=== PATIENT | male | born 1990 | race Caucasian/White ===

== ENCOUNTER 2019-03-28 11:26 | Inpatient (IN) | payer BC ==
[2019-03-28] MEDS ORDERED: NORMAL SALINE 1000 ML 1,000 ML IV ONE ×2 (11:35→12:42)
--- NOTE | 2019-03-28 11:39 | ER Document Report ---
ED Medical Screen (RME) - General Chief Complaint: Medication Refill Stated Complaint: MEDICATION REFILL Time Seen by Provider: 03/28/19 11:30 Mode of Arrival: Ambulatory Information source: Patient Notes: Patient is a 28-year-old type I diabetic presenting to the emergency department with request for medication refill. Patient reports he has not had his insulin for approximately 1 week. Patient is tachycardic at time of arrival, patient does not appear to feel well. When questioned patient states that yesterday he felt like he may be going into DKA has not felt well and has had increased thirst. Patient will be worked up for DKA at this time. Exam: Tachycardia noted on auscultation. Skin pale. I have greeted and performed a rapid initial assessment of this patient. A comprehensive ED assessment and evaluation of the patient, analysis of test results and completion of the medical decision making process will be conducted by additional ED providers. I have specifically instructed the patient or family members with the patient to immediately return to any nursing staff should anything change in the patient's condition or with their chief complaint. This medical record was dictated with voice recognizing software. There may be grammatical, syntax errors that are unintended. Past Medical History - Social History Frequency of alcohol use: Social Drug Abuse: None Physical Exam - Vital signs Vitals: Temp Pulse Resp BP Pulse Ox 97.9 F 123 H 16 137/85 H 99 03/28/19 11:30 03/28/19 11:30 03/28/19 11:30 03/28/19 11:30 03/28/19 11:30 Course - Vital Signs Vital signs: Temp Pulse Resp BP Pulse Ox 97.9 F 123 H 16 137/85 H 99 03/28/19 11:30 03/28/19 11:30 03/28/19 11:30 03/28/19 11:30 03/28/19 11:30
[2019-03-28 11:58] LABS: ABSOLUTE EOSINOPHILS # (AUTO) 0.1 10^3/uL (0.0-0.6); ABSOLUTE LYMPHOCYTES (AUTO) 1.6 10^3/uL (0.5-4.7); ABSOLUTE MONOCYTES (AUTO) 0.3 10^3/uL (0.1-1.4); ABSOLUTE NEUT (AUTO) 3.2 10^3/uL (1.7-8.2); BASOPHILS % (AUTO) 0.5 % (0-2); EOSINOPHILS % (AUTO) 1.1 % (0-6); HEMATOCRIT 43.8 % (37.9-51.0); LYMPHOCYTES % (AUTO) 30.5 % (13-45); MEAN CORPUSCULAR HEMOGLOBIN 30.8 pg (27.0-33.4); MEAN CORPUSCULAR HGB CONC 34.3 g/dL (32.0-36.0); MEAN CORPUSCULAR VOLUME 90 fl (80-97); MONOCYTES % (AUTO) 6.4 % (3-13); PLATELET COUNT 327 10^3/uL (150-450); RED BLOOD COUNT 4.88 10^6/uL (4.35-5.55); RED CELL DISTRIBUTION WIDTH 13.7 % (11.5-14.0); SEGMENTED NEUTROPHILS % (AUTO) 61.5 % (42-78); TOTAL CELLS COUNTED % (AUTO) 100 %; WHITE BLOOD COUNT 5.1 10^3/uL (4.0-10.5)
[2019-03-28 12:12] LABS: VENOUS BLOOD BASE EXCESS -12.9 mmol/L; VENOUS BLOOD HCO3 13.6 mmol/L (20-32); VENOUS BLOOD PCO2 33.6 mmHg (35-63); VENOUS BLOOD PH 7.23 (7.30-7.42)
[2019-03-28 12:19] LABS: ALBUMIN 4.9 g/dL (3.5-5.0); ALKALINE PHOSPHATASE 110 U/L (38-126); ASPARTATE AMINO TRANSFERASE 18 U/L (17-59); BILIRUBIN,DIRECT 0.3 mg/dL (0.0-0.4); BILIRUBIN,TOTAL 0.9 mg/dL (0.2-1.3); BLOOD UREA NITROGEN 14 mg/dL (7-20); CALCIUM 9.5 mg/dL (8.4-10.2); CARBON DIOXIDE 12 mmol/L (22-30); CHLORIDE 97 mmol/L (98-107); POTASSIUM 4.8 mmol/L (3.6-5.0); TOTAL PROTEIN 7.7 g/dL (6.3-8.2)
[2019-03-28 12:27] LABS: ANION GAP 27 (5-19)
[2019-03-28 12:28] LABS: GLUCOSE 461 mg/dL (75-110)
--- NOTE | 2019-03-28 12:50 | ER Document Report ---
ED Blood Sugar Problem - General Chief Complaint: High Blood Sugar Stated Complaint: MEDICATION REFILL Time Seen by Provider: 03/28/19 11:30 Mode of Arrival: Ambulatory Information source: Patient Notes: This 28-year-old male patient comes emergency room complaining of feeling bad for 1 week, nausea since yesterday. His blood sugars been running high. He ran out of his Tresiba about 1 week ago. He has been trying his regular insulin but unable to control his sugars. Patient reports he moved here in December of this year, has been getting refills on his medication from his doctor in [place] who stopped refilling the medication wanting him to get a local primary care provider. He has not done that yet. He has been hospitalized for DKA in the past. 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 Review of Systems - Review of Systems Constitutional: Weakness EENT: No symptoms reported Cardiovascular: No symptoms reported Respiratory: No symptoms reported Gastrointestinal: Nausea, Other - Increased thirst Genitourinary: Other - Increased urination Musculoskeletal: No symptoms reported Skin: No symptoms reported Hematologic/Lymphatic: No symptoms reported Neurological/Psychological: No symptoms reported Physical Exam - Vital signs Vitals: Temp Pulse Resp BP Pulse Ox 97.9 F 123 H 16 137/85 H 99 03/28/19 11:30 03/28/19 11:30 03/28/19 11:30 03/28/19 11:30 03/28/19 11:30 Interpretation: Tachycardic, Tachypneic - General General appearance: Alert In distress: None Notes: Patient has strong ketone odor to his breath. - HEENT Head: Normocephalic, Atraumatic Eyes: Normal Pupils: PERRL Mucous membranes: Dry Neck: Normal - Respiratory Respiratory status: Tachypnea Breath sounds: Normal - Cardiovascular Rhythm: Regular, Tachycardia Heart sounds: Normal auscultation Murmur: No - Abdominal Inspection: Normal Bowel sounds: Normal Tenderness: Nontender - Back Back: Normal - Extremities General upper extremity: Normal inspection General lower extremity: Normal inspection - Neurological Neuro grossly intact: Yes - Psychological Associated symptoms: Normal affect, Normal mood - Skin Skin Temperature: Warm Skin Moisture: Dry Skin Color: Normal Course - Vital Signs Vital signs: Temp Pulse Resp BP Pulse Ox 97.9 F 123 H 20 124/85 100 03/28/19 11:30 03/28/19 11:30 03/28/19 14:01 03/28/19 14:01 03/28/19 14:01 - Laboratory Result Diagrams: 03/28/19 11:43 03/28/19 11:43 Laboratory results interpreted by me: 03/28/19 03/28/19 03/28/19 11:43 11:43 13:21 VBG pH 7.23 L VBG pCO2 33.6 L VBG HCO3 13.6 L Sodium 136.2 L Chloride 97 L Carbon Dioxide 12 L Anion Gap 27 H Glucose 461 H* POC Glucose 402 H* Urine Glucose (UA) Urine Ketones 03/28/19 13:30 VBG pH VBG pCO2 VBG HCO3 Sodium Chloride Carbon Dioxide Anion Gap Glucose POC Glucose Urine Glucose (UA) >=500 H Urine Ketones 80 H - EKG Interpretation by Me EKG shows normal: Sinus rhythm, [place], Intervals, QRS Complexes, ST-T Waves Rate: Tachycardia - 103 - Consults Corina Castillo NP Time consulted: 14:20 Consulted provider: will come to ER Critical Care Note - Critical Care Note Total time excluding time spent on procedures (mins): 35 Discharge - Discharge Clinical Impression: Hyperglycemia due to type 1 diabetes mellitus, Has run out of medications Diabetic ketoacidosis Qualifiers: Diabetes mellitus type: type 1 Diabetes mellitus complication detail: without coma Qualified Code(s): E10.10 - Type 1 diabetes mellitus with ketoacidosis without coma Condition: Stable Disposition: ADMITTED INPATIENT Admitting Provider: Neli (Hospitalist) Unit Admitted: Telemetry
[2019-03-28] MEDS ORDERED: INSULIN REG, HUMAN 100 UNIT/ML 3 ML VIAL (PYX) IV ONE ×2 (13:02→14:59)
[2019-03-28 13:43] LABS: APPEARANCE,URINE CLEAR; BILIRUBIN,URINE NEGATIVE (NEGATIVE); COLOR,URINE STRAW; GLUCOSE, URINE >=500 mg/dL (NEGATIVE); KETONES,URINE 80 mg/dL (NEGATIVE); LEUKOCYTE ESTERASE,URINE NEGATIVE (NEGATIVE); NITRITE,URINE NEGATIVE (NEGATIVE); PROTEIN,URINE NEGATIVE (NEGATIVE); URINE SPECIFIC GRAVITY 1.017; UROBILINOGEN,URINE NEGATIVE mg/dL (<2.0)
[2019-03-28] MEDS ORDERED: ONDANSETRON HCL INJ/PF 4 MG/2 ML SDV IV PRN (15:00)
[2019-03-28] MEDS ORDERED: MAG HYDROX/AL HYDROX/SIMETH SUSP 30 ML UDCUP PO PRN (15:00)
[2019-03-28] MEDS ORDERED: PROMETHAZINE HCL INJ 25 MG/1 ML VIAL IV PRN (15:00)
[2019-03-28] MEDS ORDERED: NORMAL SALINE 1000 ML 1,000 ML IV PRN (15:00)
[2019-03-28] MEDS ORDERED: ACETAMINOPHEN 325 MG TABLET PO PRN (15:00)
[2019-03-28] MEDS ORDERED: DEXTROSE 50%-WATER 25 GM/50 ML DISP.SYRIN IV PRN ×2 (15:04)
[2019-03-28] MEDS ORDERED: GLUCAGON,HUMAN RECOMB 1 MG INJ IM PRN (15:04)
[2019-03-28] MEDS ORDERED: DEXTROSE 40% GEL 15 GM TUBE PO PRN ×2 (15:04)
--- NOTE | 2019-03-28 15:21 | PDOC H&P ---
History of Present Illness Patient complains of: Uncontrolled blood sugars History of Present Illness: BRADY SIMMONS is a 28 year old male with a past medical history significant for insulin-dependent diabetes mellitus only. Patient reports that he moved to the area a few months ago and ran out of his Tresiba last week. He has been utilizing NovoLog and attempt to manage his blood sugars. He reports he began having generalized malaise, polydipsia, polyuria, and nausea approximately 2 days ago. Reports one episode of emesis yesterday but none today. He denies any precipitating illnesses; no fever chills, upper respiratory symptoms, chest pain, diarrhea, or UTI symptoms. Evaluation in the emergency department revealed mild tachycardia with a heart rate of 100 -110, normal CBC, and chemistry demonstrating DKA with sodium of 136.2, potassium 4.8, bicarb 12, anion gap 27, and blood glucose 461. Urinalysis positive for glucose and ketones. EKG demonstrates sinus tachycardia. Patient was previously 2 L normal saline bolus and started on insulin drip at 1 unit/h. He was then referred to the hospitalist service for admission and management of the above-stated complaints of findings. Past Medical History Cardiac Medical History: Reports: None Pulmonary Medical History: Reports: Asthma - Childhood EENT Medical History: Reports: None Neurological Medical History: Reports: None Endocrine Medical History: Reports: Diabetes Mellitus Type 1 Renal/ Medical History: Reports: None Malignancy Medical History: Reports: None GI Medical History: Reports: None Musculoskeltal Medical History: Reports: None Skin Medical History: Reports: None Psychiatric Medical History: Reports: None Traumatic Medical History: Reports: None Hematology: Reports: None Infectious Medical History: Reports: None Past Surgical History Past Surgical History: Reports: Other - 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 Social History Information Source: Patient Lives with: Alone Smoking Status: Never Smoker Electronic Cigarette use?: No Frequency of Alcohol Use: Social Hx Recreational Drug Use: No Drugs: None Hx Prescription Drug Abuse: No - Advance Directive Resuscitation Status: Full Code Family History Family History: Reviewed & Not Pertinent Parental Family History Reviewed: Yes Children Family History Reviewed: Yes Sibling(s) Family History Reviewed.: Yes Medication/Allergy Allergies/Adverse Reactions: Penicillins Allergy (Verified 03/28/19 11:38) Review of Systems Constitutional: PRESENT: anorexia, fatigue. ABSENT: chills, fever(s), h eadache(s), weight gain, weight loss Eyes: ABSENT: visual disturbances Ears: ABSENT: hearing changes Cardiovascular: ABSENT: chest pain, dyspnea on exertion, edema, orthropnea, palpitations Respiratory: ABSENT: cough, hemoptysis Gastrointestinal: PRESENT: nausea. ABSENT: abdominal pain, constipation, diarrhea, hematemesis, hematochezia, vomiting Genitourinary: ABSENT: dysuria, hematuria Musculoskeletal: ABSENT: joint swelling Integumentary: ABSENT: rash, wounds Neurological: ABSENT: abnormal gait, abnormal speech, confusion, dizziness, focal weakness, syncope Psychiatric: ABSENT: anxiety, depression, homidical ideation, suicidal ideation Endocrine: PRESENT: polydipsia, polyuria. ABSENT: cold intolerance, heat into lerance Hematologic/Lymphatic: ABSENT: easy bleeding, easy bruising Physical Exam Vital Signs: Temp Pulse Resp BP Pulse Ox 97.9 F 123 H 20 124/85 100 03/28/19 11:30 03/28/19 11:30 03/28/19 14:01 03/28/19 14:01 03/28/19 14:01 Intake & Output 03/27/19 03/28/19 03/29/19 06:59 06:59 06:59 Intake Total 1999 Balance 1999 Weight 61.5 kg General appearance: PRESENT: no acute distress, thin, well-developed, well- nourished Head exam: PRESENT: atraumatic, normocephalic Eye exam: PRESENT: conjunctiva pink, EOMI, PERRLA. ABSENT: scleral icterus Ear exam: PRESENT: normal external ear exam Mouth exam: PRESENT: dry mucosa, tongue midline Respiratory exam: PRESENT: clear to auscultation [place], symmetrical, unlabored. ABSENT: rales, rhonchi, wheezes Cardiovascular exam: PRESENT: RRR, +S1, +S2. ABSENT: diastolic murmur, rubs, systolic murmur Vascular exam: PRESENT: normal capillary refill GI/Abdominal exam: PRESENT: normal bowel sounds, soft. ABSENT: distended, guarding, mass, organolmegaly, rebound, tenderness Rectal exam: PRESENT: deferred Extremities exam: PRESENT: full ROM. ABSENT: calf tenderness, clubbing, pedal edema Neurological exam: PRESENT: alert, awake, oriented to person, oriented to place, oriented to time, oriented to situation, CN II-XII grossly intact. ABSENT: motor sensory deficit Psychiatric exam: PRESENT: appropriate affect, normal mood. ABSENT: homicidal ideation, suicidal ideation Skin exam: PRESENT: dry, intact, warm. ABSENT: cyanosis, rash Results Laboratory Results: 03/28/19 11:43 03/28/19 11:43 03/28/19 03/28/19 03/28/19 11:43 11:43 11:43 WBC 5.1 RBC 4.88 Hgb 15.0 Hct 43.8 MCV 90 MCH 30.8 MCHC 34.3 RDW 13.7 Plt Count 327 Seg Neutrophils % 61.5 VBG pH 7.23 L VBG pCO2 33.6 L VBG HCO3 13.6 L VBG Base Excess -12.9 Sodium 136.2 L Potassium 4.8 Chloride 97 L Carbon Dioxide 12 L Anion Gap 27 H BUN 14 Creatinine 0.71 Est GFR ( Amer) > 60 Glucose 461 H* Calcium 9.5 Magnesium 2.0 Total Bilirubin 0.9 AST 18 Alkaline Phosphatase 110 Total Protein 7.7 Albumin 4.9 Urine Color Urine Appearance Urine pH Ur Specific [employer] Urine Protein Urine Glucose (UA) Urine Ketones Urine Blood Urine Nitrite Ur Leukocyte Esterase Urine WBC (Auto) Urine RBC (Auto) 03/28/19 13:30 WBC RBC Hgb Hct MCV MCH MCHC RDW Plt Count Seg Neutrophils % VBG pH VBG pCO2 VBG HCO3 VBG Base Excess Sodium Potassium Chloride Carbon Dioxide Anion Gap BUN Creatinine Est GFR ( Amer) Glucose Calcium Magnesium Total Bilirubin AST Alkaline Phosphatase Total Protein Albumin Urine Color STRAW Urine Appearance CLEAR Urine pH 5.0 Ur Specific [employer] 1.017 Urine Protein NEGATIVE Urine Glucose (UA) >=500 H Urine Ketones 80 H Urine Blood NEGATIVE Urine Nitrite NEGATIVE Ur Leukocyte Esterase NEGATIVE Urine WBC (Auto) 0 Urine RBC (Auto) 0 Assessment and Plan - Diagnosis (1) Diabetic ketoacidosis Qualifiers: Diabetes mellitus type: type 1 Diabetes mellitus complication detail: without coma Qualified Code(s): E10.10 - Type 1 diabetes mellitus with ketoacidosis without coma Is this a current diagnosis for this admission?: Yes Plan: The patient was admitted to the medical floor on continuous cardiac telemetry. We will provide aggressive IV fluid resuscitation. 10 units regular insulin IV now. Continue on insulin drip with hourly Accu-Cheks Nursing to notify provider when glucose drops before 250; anticipate patient will require D5NS shortly. N.p.o. with the exception of ice chips Serial chemistries group director experience, patient educator, and marine air ground task force planners are consulted. (2) Hyponatremia Is this a current diagnosis for this admission?: Yes Plan: Secondary to IV fluids. Aggressive IV fluid rehydration. Follow-up chemistry. (3) Tachycardia Is this a current diagnosis for this admission?: Yes Plan: Secondary to #1. Management as above. Monitor on continuous cardiac telemetry. (4) Nausea Is this a current diagnosis for this admission?: Yes Plan: Secondary #1. Management as above. Antiemetics as needed. (5) Diabetes mellitus type 1 Qualifiers: Diabetes mellitus complication status: with hyperglycemia Qualified Code(s): E10.65 - Type 1 diabetes mellitus with hyperglycemia Is this a current diagnosis for this admission?: Yes Plan: Management of DKA as above. Will check A1c with AM lab work. - Time Time Spent with patient: 35 or more minutes Medications reviewed and adjusted accordingly: Yes Anticipated discharge: Home Within: within 48 hours
[2019-03-28] MEDS: NORMAL SALINE 100 ML with INSULIN REGULAR, HUMAN 100 UNIT IV PRN ×6 (15:30→18:30)
[2019-03-28] MEDS ORDERED: DEXTROSE 5%-NORMAL SALINE 1,000 ML IV PRN (16:56)
--- NOTE | 2019-03-28 17:13 | EKG REPORT ---
SEVERITY:- OTHERWISE NORMAL ECG - SINUS TACHYCARDIA : Confirmed by: Wilfredo Tyler MD 28-Mar-2019 17:12:50
[2019-03-28 18:34] LABS: ANION GAP 18 (5-19); BLOOD UREA NITROGEN 13 mg/dL (7-20); CALCIUM 8.4 mg/dL (8.4-10.2); CARBON DIOXIDE 13 mmol/L (22-30); CHLORIDE 107 mmol/L (98-107); GLUCOSE 218 mg/dL (75-110)
[2019-03-28 18:43] LABS: POTASSIUM 3.8 mmol/L (3.6-5.0)
[2019-03-28] MEDS ORDERED: POTASSI CL 20 MEQ/D5NS 1L 20 MEQ/1,000 ML RTUINJ IV PRN (19:17)
[2019-03-28] MEDS ORDERED: POTASSIUM CHLORIDE 10 MEQ CAPSULE.ER PO ONE (20:00)
[2019-03-28] MEDS: POTASSI CL 20 MEQ/D5-1/2NS 1L 1,000 ML IV PRN (20:42)
[2019-03-28] MEDS: HEPARIN SOD (PORCINE) 5,000 UNIT/ML 1 ML VIAL SUBCUT SCH (21:27)
[2019-03-28] MEDS: FAMOTIDINE INJ/PF 20 MG/2 ML SDV IV SCH (21:36)
--- NOTE | 2019-03-28 23:10 | EKG REPORT ---
SEVERITY:- OTHERWISE NORMAL ECG - SINUS RHYTHM LEFT AXIS DEVIATION LVH : Confirmed by: Wilfredo Tyler MD 28-Mar-2019 23:09:17
[2019-03-29 01:04] LABS: ANION GAP 10 (5-19); BLOOD UREA NITROGEN 9 mg/dL (7-20); CALCIUM 8.3 mg/dL (8.4-10.2); CARBON DIOXIDE 21 mmol/L (22-30); CHLORIDE 109 mmol/L (98-107); GLUCOSE 114 mg/dL (75-110); POTASSIUM 3.7 mmol/L (3.6-5.0)
[2019-03-29] MEDS: POTASSI CL 20 MEQ/D5-1/2NS 1L 1,000 ML IV PRN (01:47)
[2019-03-29] MEDS ORDERED: DEXTROSE 50%-WATER 25 GM/50 ML DISP.SYRIN IV PRN ×2 (03:37)
[2019-03-29] MEDS ORDERED: DEXTROSE 40% GEL 15 GM TUBE PO PRN ×2 (03:37)
[2019-03-29] MEDS ORDERED: GLUCAGON,HUMAN RECOMB 1 MG INJ IM PRN (03:37)
[2019-03-29] MEDS: HEPARIN SOD (PORCINE) 5,000 UNIT/ML 1 ML VIAL SUBCUT SCH ×2 (05:50→13:22)
[2019-03-29] MEDS: POTASSIUM CHLORIDE 10 MEQ CAPSULE.ER PO SCH ×2 (05:53→13:18)
[2019-03-29 06:08] LABS: HEMATOCRIT 38.7 % (37.9-51.0); HEMOGLOBIN 13.7 g/dL (13.5-17.0); MEAN CORPUSCULAR HEMOGLOBIN 30.8 pg (27.0-33.4); MEAN CORPUSCULAR HGB CONC 35.3 g/dL (32.0-36.0); MEAN CORPUSCULAR VOLUME 87 fl (80-97); PLATELET COUNT 278 10^3/uL (150-450); RED BLOOD COUNT 4.44 10^6/uL (4.35-5.55); RED CELL DISTRIBUTION WIDTH 13.5 % (11.5-14.0); WHITE BLOOD COUNT 4.4 10^3/uL (4.0-10.5)
[2019-03-29 06:25] LABS: ANION GAP 11 (5-19); BLOOD UREA NITROGEN 7 mg/dL (7-20); CALCIUM 8.2 mg/dL (8.4-10.2); CARBON DIOXIDE 18 mmol/L (22-30); CHLORIDE 106 mmol/L (98-107); GLUCOSE 271 mg/dL (75-110); POTASSIUM 4.1 mmol/L (3.6-5.0)
[2019-03-29] MEDS ORDERED: NORMAL SALINE 1000 ML 1,000 ML IV PRN (08:26)
[2019-03-29] MEDS: INSULIN LISPRO 100 UNIT/ML 3 ML VIAL SUBCUT SCH ×6 (08:36→17:49)
[2019-03-29] MEDS: FAMOTIDINE INJ/PF 20 MG/2 ML SDV IV SCH (09:28)
[2019-03-29] MEDS ORDERED: INSULIN GLARGINE,HUM.REC.ANLOG 1,000 UNIT/10 ML VIAL SUBCUT SCH (10:00)
[2019-03-29] MEDS ORDERED: PROMETHAZINE HCL INJ 25 MG/1 ML VIAL IV PRN (11:00)
[2019-03-29] MEDS ORDERED: ONDANSETRON HCL INJ/PF 4 MG/2 ML SDV IV PRN (11:00)
[2019-03-29 15:59] LABS: ANION GAP 9 (5-19); BLOOD UREA NITROGEN 7 mg/dL (7-20); CALCIUM 9.2 mg/dL (8.4-10.2); CARBON DIOXIDE 24 mmol/L (22-30); CHLORIDE 106 mmol/L (98-107); GLUCOSE 151 mg/dL (75-110)
[2019-03-29 18:27] VITALS: BP 118/81
--- NOTE | 2019-03-31 15:29 | PDOC DISCHARGE SUMMARY ---
Impression - Admit/DC Date/PCP Admission Date/Primary Care Provider: 03/28/19 15:13 Discharge Date: 03/29/19 - Discharge Diagnosis (1) Diabetic ketoacidosis Is this a current diagnosis for this admission?: Yes (2) Hyponatremia Is this a current diagnosis for this admission?: Yes (3) Tachycardia Is this a current diagnosis for this admission?: Yes (4) Nausea Is this a current diagnosis for this admission?: Yes (5) Diabetes mellitus type 1 Is this a current diagnosis for this admission?: Yes - Additional Information Resuscitation Status: Full Code Discharge Diet: Diabetic Discharge Activity: Activity As Tolerated, Balance Activity w/Rest Prescriptions: Insulin Aspart [Novolog Flexpen] 0 - 12 unit SUBCUT ACHS #3 Insulin Degludec [Tresiba Flextouch U-100] 40 unit SQ QHS #3 Home Medications: Acetaminophen [Tylenol 325 mg Tablet] 650 mg PO Q4HP PRN tablet 03/29/19 Insulin Aspart [Novolog Flexpen] 0 - 12 unit SUBCUT ACHS #3 03/29/19 Insulin Degludec [Tresiba Flextouch U-100] 40 unit SQ QHS #3 03/29/19 History of Present Illiness History of Present Illness: BRADY SIMMONS is a 28 year old male with a past medical history significant for insulin-dependent diabetes mellitus only. Patient reports that he moved to the area a few months ago and ran out of his Tresiba last week. He has been utilizing NovoLog and attempt to manage his blood sugars. He reports he began having generalized malaise, polydipsia, polyuria, and nausea approximately 2 days ago. Reports one episode of emesis yesterday but none today. He denies any precipitating illnesses; no fever chills, upper respiratory symptoms, chest pain, diarrhea, or UTI symptoms. Evaluation in the emergency department revealed mild tachycardia with a heart rate of 100 -110, normal CBC, and chemistry demonstrating DKA with sodium of 136.2, potassium 4.8, bicarb 12, anion gap 27, and blood glucose 461. Urinalysis positive for glucose and ketones. EKG demonstrates sinus tachycardia. Patient was previously 2 L normal saline bolus and started on insulin drip at 1 unit/h. He was then referred to the hospitalist service for admission and management of the above-stated complaints of findings. Hospital Course Hospital Course: The patient was admitted to the medical floor on continuous cardiac telemetry. He was provided aggressive IV fluid resuscitation and electrolytes were monitored and replaced as needed. He was initially started on insulin drip. His anion gap subsequently closed and bicarb returned to normal. He was transitioned to subcutaneous insulin and advance to a consistent carb diet. The patient had the opportunity meet with registered dietitian and wellness educator. He also met with the associate merchandise planner for information on area resources. At time of discharge, patient is in stable condition, tolerating a consistent carb diet, asymptomatic, with well-controlled blood sugars. He is discharged home in stable condition. He is instructed to establish with a local primary care provider. He is advised to take occasion as prescribed. He is encouraged to eat a consistent carb diet and to drink plenty of fluids. He is instructed to return to the emergency department as needed for concerning symptoms. Physical Exam Vital Signs: Temp Pulse Resp BP Pulse Ox 97.7 F 91 17 118/81 99 03/29/19 18:26 03/29/19 18:26 03/29/19 18:26 03/29/19 18:26 03/29/19 18:26 Intake & Output 03/30/19 03/31/19 04/01/19 06:59 06:59 06:59 Intake Total 498 Balance 498 Weight 63.4 kg General appearance: PRESENT: no acute distress, cooperative, thin, well- developed, well-nourished Head exam: PRESENT: atraumatic, normocephalic Eye exam: PRESENT: conjunctiva pink, EOMI, PERRLA. ABSENT: scleral icterus Ear exam: PRESENT: normal external ear exam Mouth exam: PRESENT: moist, tongue midline Neck exam: ABSENT: carotid bruit, JVD, lymphadenopathy, thyromegaly Respiratory exam: PRESENT: clear to auscultation [place]. ABSENT: rales, rhonchi, wheezes Cardiovascular exam: PRESENT: RRR. ABSENT: diastolic murmur, rubs, systolic murmur Pulses: PRESENT: normal dorsalis pedis pul Vascular exam: PRESENT: normal capillary refill GI/Abdominal exam: PRESENT: normal bowel sounds, soft. ABSENT: distended, guarding, mass, organolmegaly, rebound, tenderness Rectal exam: PRESENT: deferred Extremities exam: PRESENT: full ROM. ABSENT: calf tenderness, clubbing, pedal edema Musculoskeletal exam: PRESENT: ambulatory Neurological exam: PRESENT: alert, awake, oriented to person, oriented to place, oriented to time, oriented to situation, CN II-XII grossly intact. ABSENT: motor sensory deficit Psychiatric exam: PRESENT: appropriate affect, normal mood. ABSENT: homicidal ideation, suicidal ideation Skin exam: PRESENT: dry, intact, warm. ABSENT: cyanosis, rash Results Laboratory Results: WBC 4.4 10^3/uL (4.0-10.5) 03/29/19 05:51 RBC 4.44 10^6/uL (4.35-5.55) 03/29/19 05:51 Hgb 13.7 g/dL (13.5-17.0) 03/29/19 05:51 Hct 38.7 % (37.9-51.0) 03/29/19 05:51 MCV 87 fl (80-97) 03/29/19 05:51 MCH 30.8 pg (27.0-33.4) 03/29/19 05:51 MCHC 35.3 g/dL (32.0-36.0) 03/29/19 05:51 RDW 13.5 % (11.5-14.0) 03/29/19 05:51 Plt Count 278 10^3/uL (150-450) 03/29/19 05:51 Lymph % (Auto) 30.5 % (13-45) 03/28/19 11:43 [place] % (Auto) 6.4 % (3-13) 03/28/19 11:43 Eos % (Auto) 1.1 % (0-6) 03/28/19 11:43 Baso % (Auto) 0.5 % (0-2) 03/28/19 11:43 Absolute Neuts (auto) 3.2 10^3/uL (1.7-8.2) 03/28/19 11:43 Absolute Lymphs (auto) 1.6 10^3/uL (0.5-4.7) 03/28/19 11:43 Absolute Monos (auto) 0.3 10^3/uL (0.1-1.4) 03/28/19 11:43 Absolute Eos (auto) 0.1 10^3/uL (0.0-0.6) 03/28/19 11:43 Absolute Basos (auto) 0.0 10^3/uL (0.0-0.2) 03/28/19 11:43 Seg Neutrophils % 61.5 % (42-78) 03/28/19 11:43 VBG pH 7.23 (7.30-7.42) L 03/28/19 11:43 VBG pCO2 33.6 mmHg (35-63) L 03/28/19 11:43 VBG HCO3 13.6 mmol/L (20-32) L 03/28/19 11:43 VBG Base Excess -12.9 mmol/L 03/28/19 11:43 Sodium 139.1 mmol/L (137-145) 03/29/19 15:20 Potassium 4.0 mmol/L (3.6-5.0) 03/29/19 15:20 Chloride 106 mmol/L (98-107) 03/29/19 15:20 Carbon Dioxide 24 mmol/L (22-30) 03/29/19 15:20 Anion Gap 9 (5-19) 03/29/19 15:20 BUN 7 mg/dL (7-20) 03/29/19 15:20 Creatinine 0.75 mg/dL (0.52-1.25) 03/29/19 15:20 Est GFR ( Amer) > 60 (>60) 03/29/19 15:20 Est GFR (MDRD) Non-Af > 60 (>60) 03/29/19 15:20 Glucose 151 mg/dL (75-110) H 03/29/19 15:20 POC Glucose 152 mg/dL (70-110) H 03/29/19 17:09 Hemoglobin A1c % 12.0 % (4.7-6.0) H 03/29/19 05:51 Calcium 9.2 mg/dL (8.4-10.2) 03/29/19 15:20 Magnesium 2.0 mg/dL (1.6-2.3) 03/28/19 11:43 Total Bilirubin 0.9 mg/dL (0.2-1.3) 03/28/19 11:43 Direct Bilirubin 0.3 mg/dL (0.0-0.4) 03/28/19 11:43 Neonat Total Bilirubin Not Reportable 03/28/19 11:43 Neonat Direct Bilirubin Not Reportable 03/28/19 11:43 Neonat Indirect Bili Not Reportable 03/28/19 11:43 AST 18 U/L (17-59) 03/28/19 11:43 ALT 15 U/L (<50) 03/28/19 11:43 Alkaline Phosphatase 110 U/L (38-126) 03/28/19 11:43 Total Protein 7.7 g/dL (6.3-8.2) 03/28/19 11:43 Albumin 4.9 g/dL (3.5-5.0) 03/28/19 11:43 Urine Color STRAW 03/28/19 13:30 Urine Appearance CLEAR 03/28/19 13:30 Urine pH 5.0 (5.0-9.0) 03/28/19 13:30 Ur Specific [place] 1.017 03/28/19 13:30 Urine Protein NEGATIVE mg/dL (NEGATIVE) 03/28/19 13:30 Urine Glucose (UA) >=500 mg/dL (NEGATIVE) H 03/28/19 13:30 Urine Ketones 80 mg/dL (NEGATIVE) H 03/28/19 13:30 Urine Blood NEGATIVE (NEGATIVE) 03/28/19 13:30 Urine Nitrite NEGATIVE (NEGATIVE) 03/28/19 13:30 Urine Bilirubin NEGATIVE (NEGATIVE) 03/28/19 13:30 Urine Urobilinogen NEGATIVE mg/dL (<2.0) 03/28/19 13:30 Ur Leukocyte Esterase NEGATIVE (NEGATIVE) 03/28/19 13:30 Urine WBC (Auto) 0 /HPF 03/28/19 13:30 Urine RBC (Auto) 0 /HPF 03/28/19 13:30 Urine Mucus (Auto) RARE /LPF 03/28/19 13:30 Urine Ascorbic Acid NEGATIVE (NEGATIVE) 03/28/19 13:30 Plan Plan of Treatment: Patient is discharged home in stable condition. Instructed to establish with a local primary care provider. He is advised to take his medications as prescribed; eat a consistent carb diet, and drink plenty of water. He is encouraged to return to the emergency department as needed for concerning Time Spent: Greater than 30 Minutes Stroke Is this a Stroke Patient?: No Acute Heart Failure - Is this a Heart Failure Patient?: No
== END 2019-03-29 18:58 | disposition home or self-care (01) | DRG 638 ==
LOC: ER 11:26 → EH 15:13 → OBSVTOIN 15:13 → INTOOBSV 15:13 → 5 17:21
PROVIDERS: ADMIT Internal Medicine; ATTEND Internal Medicine
DX: E10.10 Type 1 diabetes mellitus with ketoacidosis without coma (principal); E87.1 Hypo-osmolality and hyponatremia; R00.0 Tachycardia, unspecified; Z88.0 Allergy status to penicillin; Z91.14 Patient's other noncompliance with medication regimen
CPT/HCPCS: 36415; 80048; 80053; 81001; 82803; 82962; 83036; 83735; 85025; 85027; 93005; 93010; 96360; 99291; J1815; J3480; J3490; J7030; J7042; S0028